=== PATIENT | male | born 1990 | race Caucasian/White ===

== ENCOUNTER 2016-08-28 11:15 | Emergency (ER) | payer OTHER ==
[2016-08-28 11:24] VITALS: BP 146/91; TEMP 98.5; BMI 28.3
--- NOTE | 2016-08-28 11:57 | PDOC ---
History of Present Illness - General Chief Complaint: Hemorrhoids Stated Complaint: RECTAL BLEED Time Seen by Provider: 08/28/16 11:30 History Source: Patient Exam Limitations: No Limitations - History of Present Illness Travel History: No Initial Comments: 08/28/16 11:52 26-year-old male presents to the ED with complaints of external hemorrhoid the past 4 days which has been causing pain and had noted some blood on the napkin last night after bowel movement. 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 Patient denies abdominal pain, fever, homosexuality, or placing items into the rectum. Timing/Duration: reports: intermittent Quality: reports: mild Abdominal Pain Onset Location: reports: other Pain Radiation: reports: no radiation Activities at Onset: reports: other Aggravating Factors: improves with: Defecation Alleviating Factors: improves with: None Past History - Past Medical History Allergies/Adverse Reactions: Allergies Allergy/AdvReac Type Severity Reaction Status Date / Time No Known Allergies Allergy Verified 08/28/16 11:22 Home Medications: Ambulatory Orders Pramoxine HCl/Zinc Oxide [Hemorrhoid 1%-12.5% Ointment] 1 applic TP PRN #1 oint...g. 08/28/16 Other medical history: denies - Psycho/Social/Smoking Cessation Hx Anxiety: No Suicidal Ideation: No Smoking History: Never smoked Have you smoked in the past 12 months: No Information on smoking cessation initiated: No Hx Alcohol Use: Yes (occasional on weekends) Drug/Substance Use Hx: Yes Substance Use Type: Marijuana Patient Lives Alone: No Review of Systems - Review of Systems Able to Perform ROS?: Yes Constitutional: No: Symptoms Reported Cardiac (ROS): No: Lightheadedness ABD/GI: Yes: Rectal Bleeding. No: Blood Streaked Bowels, Abdominal cramping Musculoskeletal: No: Symptoms Reported Integumentary: No: Symptoms Reported Neurological: No: Weakness Hematologic/Lymphatic: No: Symptoms Reported *Physical Exam - Vital Signs Last Vital Signs Temp Pulse Resp BP Pulse Ox 98.5 F 114 H 20 146/91 98 08/28/16 11:22 08/28/16 11:22 08/28/16 11:22 08/28/16 11:22 08/28/16 11:22 - Physical Exam General Appearance: Yes: Nourished, Appropriately Dressed. No: Apparent Distress HEENT: negative: Pale Conjunctivae Cardiovascular: positive: Regular Rhythm. negative: Murmur Gastrointestinal/Abdominal: positive: Soft. negative: Tenderness Rectal Exam: positive: heme negative stool, hemorrhoids (small non thrombosed x 2 at 6 o'clock) Integumentary: positive: Normal Color, Warm, Moist Neurologic: positive: Motor Strength 5/5 (ambulatory) Medical Decision Making - Medical Decision Making 08/28/16 11:56 Patient with complaints of tenderness in the rectum and felt a bump in the shower yesterday morning followed by a bowel movement in the evening that he had noted right red blood on the napkin but denies any blood-streaked stool or blood clots in the toilet. Patient currently denies rectal bleeding and states has tenderness to the rectum so came to the ER. Patient on exam had 2 small nonthrombosed hemorrhoids with no internal hemorrhoids palpated. Brown stool. Patient will be sent home with topicals and recommendations to decrease symptoms of hemorrhoids. *DC/Admit/Observation/Transfer Diagnosis at time of Disposition: Bleeding external hemorrhoids - Discharge Dispostion Disposition: HOME Condition at time of disposition: Good - Prescriptions Prescriptions: Pramoxine HCl/Zinc Oxide [Hemorrhoid 1%-12.5% Ointment] 1 applic TP PRN #1 oint...g. - Patient Instructions Printed Discharge Instructions: DI for Hemorrhoids Additional Instructions: Please use medication as needed and use moist wipes when cleansing after bowel movements. Please increase your fiber and water intake as this may alleviate the hardness and firmness of stool causing less irritation.
[2016-08-28 12:03] VITALS: PULSE 92
== END 2016-08-28 12:11 | disposition home or self-care (01) ==
LOC: JERFT 11:15
DX: D64.4 Congenital dyserythropoietic anemia (principal)
CPT/HCPCS: 99281-25